=== PATIENT | female | born 1990 | race African-American/Black ===

== ENCOUNTER 2022-02-23 23:04 | Emergency (ER) | payer BC, SELFPAY ==
[2022-02-24] MEDS ORDERED: Ondansetron PF 4 MG/2 ML Vial ONE (00:56)
[2022-02-24 01:08] LABS: Hemoglobin 13.6 g/dL (12.0-16.0); Mean Corpuscular HGB CONC 32.5 g/dL (32.0-36.0); Mean Corpuscular Hemoglobin 28.3 pg (27.0-31.0); Mean Corpuscular Volume 87.2 fL (78.0-98.0); Mean Platelet Volume 11.6 fL (7.4-10.4); Platelet Count 219 thou/uL (130-400); RBC Distribution Width 15.3 % (11.5-14.5); Red Blood Cell (RBC) Count 4.81 mill/uL (4.20-5.40)
[2022-02-24 01:10] LABS: ALT (SGPT) 37 U/L (8-55); AST (SGOT) 22 U/L (5-34); Albumin 4.6 g/dL (3.5-5.0); Alkaline Phosphatase 89 U/L (40-110); Anion Gap 19 mmol/L (10-20); BUN (Urea Nitrogen) 18 mg/dL (7.0-18.7); Bilirubin, Total 0.6 mg/dL (0.2-1.2); Calc. Creatinine Clearance 0 mL/min (70-130); Calcium 10.1 mg/dL (7.8-10.44); Carbon Dioxide 19 mmol/L (22-29); Chloride 107 mmol/L (98-107); Globulin 3.6 g/dL (2.4-3.5); Glucose 150 mg/dL (70-105); Lipase 7 U/L (8-78); Potassium 3.6 mmol/L (3.5-5.1); Protein, Total 8.2 g/dL (6.0-8.3); Sodium 141 mmol/L (136-145)
[2022-02-24 01:30] LABS: Band 8 % (5-11); Lymphocytes 7 % (21-51); MDiff Complete? YES; Monocytes 2 % (0-10); Neutrophil 82 % (42-75); White Blood Cell (WBC) Count 24.7 thou/uL (4.8-10.8)
[2022-02-24] MEDS ORDERED: Promethazine HCl 25 MG in Sodium Chloride 0.9% 100 ML IVPB SCH (03:00)
== END 2022-02-24 03:51 | disposition home or self-care (01) ==
LOC: ERS 23:04
DX: A08.4 Viral intestinal infection, unspecified (principal)
CPT/HCPCS: 36415; 80053; 83690; 85025; 96374; 96375; J2405; J2550; J3490

== ENCOUNTER 2022-02-25 13:24 | Emergency (ER) | payer BC ==
[~2022-02-25 13:24] MED LIST: Iopamidol-370 76% 500 ML 1 ML ONE
[2022-02-25 15:01] LABS: Hemoglobin 14.5 g/dL (12.0-16.0); Mean Corpuscular HGB CONC 32.7 g/dL (32.0-36.0); Mean Corpuscular Hemoglobin 28.1 pg (27.0-31.0); Mean Corpuscular Volume 86.1 fL (78.0-98.0); Platelet Count 242 thou/uL (130-400); RBC Distribution Width 16.1 % (11.5-14.5); Red Blood Cell (RBC) Count 5.16 mill/uL (4.20-5.40)
[2022-02-25 15:16] LABS: Anisocytosis SLIGHT = 6-15 cells (100X) (0-5/hpf); Band 3 % (5-11); Large Platelets SLIGHT; Lymphocytes 6 % (21-51); MDiff Complete? YES; Monocytes 9 % (0-10); Neutrophil 82 % (42-75); Platelet Morphology Comment Appears Adequate; White Blood Cell (WBC) Count 18.6 thou/uL (4.8-10.8)
[2022-02-25 15:22] LABS: ALT (SGPT) 40 U/L (8-55); AST (SGOT) 32 U/L (5-34); Albumin 4.9 g/dL (3.5-5.0); Alkaline Phosphatase 90 U/L (40-110); Anion Gap 17 mmol/L (10-20); BUN (Urea Nitrogen) 16 mg/dL (7.0-18.7); Bilirubin, Total 0.8 mg/dL (0.2-1.2); Calc. Creatinine Clearance 0 mL/min (70-130); Calcium 10.7 mg/dL (7.8-10.44); Carbon Dioxide 24 mmol/L (22-29); Chloride 103 mmol/L (98-107); Glucose 100 mg/dL (70-105); Lipase 8 U/L (8-78); Potassium 3.4 mmol/L (3.5-5.1); Protein, Total 8.9 g/dL (6.0-8.3); Sodium 141 mmol/L (136-145)
[2022-02-25 15:43] LABS: BHCG - Serum Negative (NEGATIVE); Pregs Control Background? CLEAR/WHITE (CLR/WHITE); Pregs Control Bar Appear? YES (CONTROL BAR)
[2022-02-25] MEDS ORDERED: Haloperidol Lactate 5 MG/ML VIAL ONE (17:09)
[2022-02-25] MEDS ORDERED: Lidocaine Viscous Sol 2% 15 ml UD Cup ONE (19:28)
[2022-02-25] MEDS ORDERED: Pantoprazole 40 MG VIAL ONE (19:28)
[2022-02-25] MEDS ORDERED: Mag-Al 1200 mg/1200 mg/30 ML UDCUP ONE (19:28)
[2022-02-25] MEDS ORDERED: Potassium Chloride 20 MEQ TAB ONE (19:42)
== END 2022-02-25 20:43 | disposition home or self-care (01) ==
LOC: ERS 13:24
DX: R11.2 Nausea with vomiting, unspecified (principal)
CPT/HCPCS: 36415; 74177; 80053; 83690; 84703; 85025; 96374; 96375; C9113; J1630; J2405; J2550; J3490; Q9967

== ENCOUNTER 2022-03-03 15:28 | Emergency (ER) | payer BC ==
[2022-03-03 17:26] LABS: #Lymphocytes 0.6 thou/uL (1.20-3.40); #Monocytes 0.4 thou/uL (0.11-0.59); #Neutrophils 15.9 thou/uL (1.40-6.50); %Basophils 0.1 % (0.0-1.0); %Eosinophils 0.1 % (0.0-10.0); %Lymphocytes 3.6 % (21.0-51.0); %Monocytes 2.4 % (0.0-10.0); %Neutrophils 93.8 % (42.0-75.0); Hemoglobin 15.3 g/dL (12.0-16.0); Mean Corpuscular HGB CONC 31.3 g/dL (32.0-36.0); Mean Corpuscular Hemoglobin 26.9 pg (27.0-31.0); Mean Platelet Volume 11.3 fL (7.4-10.4); Platelet Count 211 thou/uL (130-400); RBC Distribution Width 15.2 % (11.5-14.5); Red Blood Cell (RBC) Count 5.68 mill/uL (4.20-5.40)
[2022-03-03] MEDS ORDERED: Ondansetron ODT 4 MG TAB ONE (17:27)
[2022-03-03] MEDS ORDERED: Haloperidol Lactate 5 MG/ML VIAL ONE (17:36)
[2022-03-03] MEDS ORDERED: Midazolam HCl 2 mg/2 ml Vial ONE (17:36)
[2022-03-03 18:01] LABS: ALT (SGPT) 101 U/L (8-55); AST (SGOT) 27 U/L (5-34); Albumin 4.5 g/dL (3.5-5.0); Alkaline Phosphatase 90 U/L (40-110); Anion Gap 19 mmol/L (10-20); BUN (Urea Nitrogen) 9 mg/dL (7.0-18.7); Bilirubin, Total 0.7 mg/dL (0.2-1.2); Calc. Creatinine Clearance 0 mL/min (70-130); Calcium 9.9 mg/dL (7.8-10.44); Carbon Dioxide 19 mmol/L (22-29); Chloride 104 mmol/L (98-107); Estimated GFR 91; Globulin 3.6 g/dL (2.4-3.5); Glucose 152 mg/dL (70-105); Lipase 23 U/L (8-78); Protein, Total 8.1 g/dL (6.0-8.3); Sodium 139 mmol/L (136-145)
[2022-03-03 18:53] LABS: Bilirubin Negative (Negative); Blood, Urine Negative (Negative); Clarity Clear (Clear); Glucose, Urine (Dipstick) 300 mg/dL (Negative); Ketone, Urine 40 mg/dL (Negative); Leukocyte Negative Leu/uL (Negative); Nitrite Negative (Negative); Protein, Urine (Dipstick) 10 mg/dL (Neg-Trace); Specific Gravity, Urine 1.017 (1.002-1.036); Urobilinogen Normal mg/dL (Less than 2)
[2022-03-03 18:57] LABS: Pregnancy Test - Urine (BHCG) Negative (Negative); Pregu Control Background? CLEAR/WHITE (CLR/WHITE); Pregu Control Bar Appear? YES (CONTROL BAR); Specific Gravity 1.017 (1.002-1.036)
[2022-03-03] MEDS ORDERED: Ketorolac Tromethamine 30 MG/ML VIAL ONE (19:30)
[2022-03-03] MEDS ORDERED: Potassium Chloride 20 MEQ TAB ONE (19:30)
== END 2022-03-03 20:39 | disposition home or self-care (01) ==
LOC: ERS 15:28
DX: R11.2 Nausea with vomiting, unspecified (principal); E87.6 Hypokalemia; N83.202 Unspecified ovarian cyst, left side
CPT/HCPCS: 36415; 74177; 80053; 81003; 81025; 83690; 85025; 96361; 96374; 96375; J1630; J1885; J2250; Q0162; Q9967

== ENCOUNTER 2022-05-07 07:18 | Observation (INO) | payer BC, SELFPAY ==
[2022-05-07] MEDS ORDERED: Dicyclomine 20 MG/2 ML VIAL ONE (07:43)
[2022-05-07] MEDS ORDERED: Ondansetron PF 4 MG/2 ML Vial ONE (07:43)
[2022-05-07 08:11] LABS: Hemoglobin 12.8 g/dL (12.0-16.0); Mean Corpuscular HGB CONC 32.6 g/dL (32.0-36.0); Mean Corpuscular Hemoglobin 28.2 pg (27.0-31.0); Mean Corpuscular Volume 86.7 fL (78.0-98.0); Mean Platelet Volume 11.1 fL (7.4-10.4); Platelet Count 252 thou/uL (130-400); RBC Distribution Width 14.6 % (11.5-14.5); Red Blood Cell (RBC) Count 4.52 mill/uL (4.20-5.40); White Blood Cell (WBC) Count 22.2 thou/uL (4.8-10.8)
[2022-05-07 08:17] LABS: BHCG - Serum Negative (NEGATIVE); Pregs Control Background? CLEAR/WHITE (CLR/WHITE); Pregs Control Bar Appear? YES (CONTROL BAR)
[2022-05-07 08:30] LABS: ALT (SGPT) 42 U/L (8-55); AST (SGOT) 82 U/L (5-34); Albumin 4.7 g/dL (3.5-5.0); Alkaline Phosphatase 84 U/L (40-110); Anion Gap 19 mmol/L (10-20); BUN (Urea Nitrogen) 18 mg/dL (7.0-18.7); Bilirubin, Total 0.8 mg/dL (0.2-1.2); Calc. Creatinine Clearance 0 mL/min (70-130); Calcium 10.2 mg/dL (7.8-10.44); Carbon Dioxide 20 mmol/L (22-29); Chloride 105 mmol/L (98-107); Estimated GFR 76; Globulin 3.7 g/dL (2.4-3.5); Glucose 128 mg/dL (70-105); Lipase 5 U/L (8-78); Potassium 3.1 mmol/L (3.5-5.1); Protein, Total 8.4 g/dL (6.0-8.3); Sodium 141 mmol/L (136-145)
[2022-05-07 08:56] LABS: Band 4 % (5-11); Lymphocytes 11 % (21-51); MDiff Complete? YES; Monocytes 2 % (0-10); Neutrophil 83 % (42-75); RBC Morphology Normal
[2022-05-07] MEDS ORDERED: Metoclopramide HCl 10 MG/2 ML VIAL ONE (09:06)
[2022-05-07] MEDS ORDERED: Promethazine HCl 12.5 MG in Sodium Chloride 0.9% 50 ML IVPB SCH (11:00)
[2022-05-07 11:03] LABS: Bacteria/HPF None Seen HPF (None Seen); Bilirubin Negative (Negative); Blood, Urine 3+ (Negative); Clarity Clear (Clear); Glucose, Urine (Dipstick) Normal (Negative); Ketone, Urine 60 mg/dL (Negative); Leukocyte Negative Leu/uL (Negative); Nitrite Negative (Negative); Protein, Urine (Dipstick) 10 mg/dL (Neg-Trace); RBC/HPF 0-3 HPF (0-3); Specific Gravity, Urine 1.041 (1.002-1.036); Squamous Epithelial 0-3 HPF (0-3); Urobilinogen Normal mg/dL (Less than 2); WBC/HPF 0-3 HPF (0-3)
[2022-05-07] MEDS ORDERED: hydrALAZINE 20 MG/ML VIAL ONE (11:42)
[2022-05-07] MEDS ORDERED: Prochlorperazine Maleate 5 MG TAB ONE (13:35)
[2022-05-07] MEDS ORDERED: Zolpidem Tartrate 5 MG TAB PO PRN (13:43)
[2022-05-07] MEDS ORDERED: HYDROcodone/Acetaminophen 7.5/325 mg Tablet PO PRN (13:43)
[2022-05-07] MEDS ORDERED: Iopamidol-370 76% 500 ML 1 ML ONE (15:11)
[2022-05-07 20:08] VITALS: BMI 26.5
[2022-05-07] MEDS: Sodium Chloride 0.9% 1,000 ML IV SCH (21:36)
[2022-05-07] MEDS: Ondansetron PF 4 MG/2 ML Vial IVP PRN (21:40)
[2022-05-07] MEDS: Famotidine/PF 20 mg/2ml Vial SLOW IVP SCH (21:41)
[2022-05-08] MEDS: hydrALAZINE 20 MG/ML VIAL SLOW IVP PRN ×2 (01:37→09:55)
[2022-05-08] MEDS: Ondansetron PF 4 MG/2 ML Vial IVP PRN ×2 (04:24→10:29)
[2022-05-08 08:17] LABS: #Lymphocytes 1.5 thou/uL (1.20-3.40); #Monocytes 1.8 thou/uL (0.11-0.59); #Neutrophils 23.1 thou/uL (1.40-6.50); %Basophils 0.1 % (0.0-1.0); %Eosinophils 0.1 % (0.0-10.0); %Lymphocytes 5.6 % (21.0-51.0); %Monocytes 6.7 % (0.0-10.0); %Neutrophils 87.5 % (42.0-75.0); Hemoglobin 13.3 g/dL (12.0-16.0); Mean Corpuscular HGB CONC 32.6 g/dL (32.0-36.0); Mean Corpuscular Hemoglobin 28.5 pg (27.0-31.0); Mean Corpuscular Volume 87.4 fL (78.0-98.0); Mean Platelet Volume 11.1 fL (7.4-10.4); Platelet Count 235 thou/uL (130-400); RBC Distribution Width 14.7 % (11.5-14.5); Red Blood Cell (RBC) Count 4.68 mill/uL (4.20-5.40); White Blood Cell (WBC) Count 26.4 thou/uL (4.8-10.8)
[2022-05-08 08:36] LABS: Albumin 4.3 g/dL (3.5-5.0)
[2022-05-08 08:37] LABS: Chloride 106 mmol/L (98-107); Potassium 3.5 mmol/L (3.5-5.1); Sodium 142 mmol/L (136-145)
[2022-05-08 08:38] LABS: Calcium 9.6 mg/dL (7.8-10.44); Glucose 93 mg/dL (70-105)
[2022-05-08 08:39] LABS: Globulin 3.4 g/dL (2.4-3.5); Protein, Total 7.7 g/dL (6.0-8.3)
[2022-05-08 08:40] LABS: Anion Gap 21 mmol/L (10-20); Bilirubin, Total 0.7 mg/dL (0.2-1.2); Carbon Dioxide 19 mmol/L (22-29)
[2022-05-08 08:41] LABS: Alkaline Phosphatase 76 U/L (40-110)
[2022-05-08 08:42] LABS: BUN (Urea Nitrogen) 9 mg/dL (7.0-18.7); Calc. Creatinine Clearance 121 mL/min (70-130); Estimated GFR 98
[2022-05-08 08:44] LABS: ALT (SGPT) 57 U/L (8-55); AST (SGOT) 121 U/L (5-34)
[2022-05-08] MEDS ORDERED: Enoxaparin Sodium 40 MG/0.4 ML SYRINGE SC SCH (09:00)
[2022-05-08] MEDS: Sodium Chloride 0.9% 1,000 ML IV SCH ×2 (09:52→14:11)
[2022-05-08] MEDS: Famotidine/PF 20 mg/2ml Vial SLOW IVP SCH (09:53)
[2022-05-08] MEDS: Enoxaparin Sodium 30 MG/0.3 ML SYRINGE SC SCH (09:57)
[2022-05-08] MEDS ORDERED: Prochlorperazine 10 MG/2 ML VIAL IM PRN (13:14)
[2022-05-08] MEDS ORDERED: Piperacillin/Tazobactam 3.375 GM in Sodium Chloride 0.9% 100 ML IVPB SCH (13:15)
[2022-05-08] MEDS ORDERED: Amlodipine 10 MG TAB PO SCH (13:30)
[2022-05-08 14:52] LABS: Amphetamine Not Detected (NotDetected); Barbiturates Screen Not Detected (NotDetected); Benzodiazepine Screen Not Detected (NotDetected); Cocaine Metabolite Screen Not Detected (NotDetected); Methadone Not Detected (NotDetected); Methamphetamine Not Detected (NotDetected); Opiate Screen Not Detected (NotDetected); Oxycodone Screen Not Detected (NotDetected); Phencyclidine (PCP) Not Detected (NotDetected); THC/Cannabinoid Screen Detected (NotDetected); Tricyclic Screen Not Detected (NotDetected)
[2022-05-08] MEDS: Promethazine HCl 25 MG in Sodium Chloride 0.9% 50 ML IVPB SCH ×3 (14:58→21:12)
[2022-05-08] MEDS ORDERED: Sodium Chloride 0.9% 1,000 ML IV SCH (15:30)
[2022-05-08] MEDS: Metoprolol Tartrate 25 MG TAB PO SCH (21:11)
[2022-05-08] MEDS: Pantoprazole 40 MG VIAL IVP SCH (21:11)
[2022-05-08 22:24] LABS: Complement-C4 39.3 mg/dL (15-57)
[2022-05-09] MEDS: Sodium Chloride 0.9% 1,000 ML IV SCH ×4 (01:17→22:00)
[2022-05-09] MEDS: Promethazine HCl 25 MG in Sodium Chloride 0.9% 50 ML IVPB SCH ×6 (01:17→22:04)
[2022-05-09] MEDS ORDERED: Ondansetron PF 4 MG/2 ML Vial IVP SCH (04:30)
[2022-05-09] MEDS: hydrALAZINE 20 MG/ML VIAL SLOW IVP PRN ×3 (04:41→22:04)
[2022-05-09 05:32] LABS: #Basophils 0.1 thou/uL (0.0-0.2); #Lymphocytes 1.5 thou/uL (1.20-3.40); #Monocytes 1.8 thou/uL (0.11-0.59); #Neutrophils 19.1 thou/uL (1.40-6.50); %Basophils 0.3 % (0.0-1.0); %Eosinophils 0.1 % (0.0-10.0); %Lymphocytes 6.5 % (21.0-51.0); %Monocytes 8.1 % (0.0-10.0); Hemoglobin 14.1 g/dL (12.0-16.0); Mean Corpuscular HGB CONC 34.1 g/dL (32.0-36.0); Mean Corpuscular Hemoglobin 29.8 pg (27.0-31.0); Mean Corpuscular Volume 87.4 fL (78.0-98.0); Mean Platelet Volume 11.1 fL (7.4-10.4); Platelet Count 250 thou/uL (130-400); RBC Distribution Width 14.6 % (11.5-14.5); Red Blood Cell (RBC) Count 4.75 mill/uL (4.20-5.40); White Blood Cell (WBC) Count 22.5 thou/uL (4.8-10.8)
[2022-05-09 05:56] LABS: ALT (SGPT) 69 U/L (8-55); AST (SGOT) 80 U/L (5-34); Albumin 4.3 g/dL (3.5-5.0); Alkaline Phosphatase 79 U/L (40-110); Anion Gap 19 mmol/L (10-20); BUN (Urea Nitrogen) 8 mg/dL (7.0-18.7); Bilirubin, Total 1.1 mg/dL (0.2-1.2); Calc. Creatinine Clearance 122 mL/min (70-130); Calcium 9.6 mg/dL (7.8-10.44); Carbon Dioxide 22 mmol/L (22-29); Chloride 105 mmol/L (98-107); Estimated GFR 104; Globulin 3.3 g/dL (2.4-3.5); Glucose 95 mg/dL (70-105); Magnesium 2.2 mg/dL (1.6-2.6); Protein, Total 7.6 g/dL (6.0-8.3); Sodium 143 mmol/L (136-145)
[2022-05-09 06:05] LABS: BHCG - Serum Negative (NEGATIVE); Pregs Control Background? CLEAR/WHITE (CLR/WHITE); Pregs Control Bar Appear? YES (CONTROL BAR)
[2022-05-09 06:12] LABS: Ferritin 20.18 ng/mL (10-291)
[2022-05-09 06:24] LABS: HBCM Index 0.06 S/CO (0-0.79); HBSAg Index 0.25 S/CO (0-0.99); Hep A IgM AB Non-Reactive (NonReactive); Hep A IgM S/CO 0.15 S/CO (0-0.79); Hep B Surf Ag NonReactive S/CO (NonReactive); Hep C IgG Ab NonReactive (NonReactive); Hep C Index 0.16 S/CO (0-0.79); Hepatitis B Core IgM Abs NonReactive (NonReactive)
[2022-05-09] MEDS ORDERED: Electrolyte Replacement Protocol 1 EACH FS SCH (06:30)
[2022-05-09] MEDS ORDERED: Labetalol HCl 100 MG/20 ML VIAL SLOW IVP SCH (06:30)
[2022-05-09] MEDS ORDERED: PROPOFOL 40 ML ONE (07:49)
[2022-05-09] MEDS ORDERED: Ketamine 50 MG/ML (10ML VIAL) ONE (07:49)
[2022-05-09] MEDS ORDERED: PROPOFOL 200 MG/20 ML VIAL ONE (08:35)
[2022-05-09] MEDS ORDERED: Metoprolol Tartrate 50 MG TAB PO SCH (09:15)
[2022-05-09] MEDS ORDERED: Promethazine HCl 25 MG/ML VIAL IVPB PRN (09:25)
[2022-05-09] MEDS ORDERED: Ondansetron HCl/PF 4 MG/2 ML Vial IVP PRN (09:25)
[2022-05-09] MEDS ORDERED: Promethazine HCl 25 MG/ML VIAL IM PRN (09:25)
[2022-05-09] MEDS ORDERED: Electrolyte Replacement Protocol FS PRN (10:00)
[2022-05-09] MEDS: Enoxaparin Sodium 30 MG/0.3 ML SYRINGE SC SCH (10:43)
[2022-05-09] MEDS: Potassium Chloride 20 MEQ in Premix Bag 1 BAG IVPB SCH ×2 (10:44→14:16)
[2022-05-09] MEDS: Pantoprazole 40 MG VIAL IVP SCH ×2 (10:45→20:51)
[2022-05-09] MEDS: Hydrochlorothiazide 25 MG TAB PO SCH (10:45)
[2022-05-09] MEDS: Metoprolol Tartrate 25 MG TAB PO SCH (11:36)
[2022-05-09] MEDS ORDERED: Potassium Chloride 20 MEQ in Premix Bag 1 BAG IVPB SCH (14:30)
[2022-05-09 17:09] LABS: ANA Symphony (Qualitative) Negative (Negative); ANA Symphony (Quantitative) 0.4 Ratio (< 0.7 Negative); EliA Vaculitis New Method **** NEW METHOD ****; Mitochondrial Ab 1.1 U/mL (<4 Negative); dsDNA IgG Antibody 0.8 IU/mL (<10 Negative)
[2022-05-09] MEDS: Metoprolol Tartrate 50 MG TAB PO SCH (20:51)
[2022-05-10] MEDS: Promethazine HCl 25 MG in Sodium Chloride 0.9% 50 ML IVPB SCH ×4 (01:15→12:59)
[2022-05-10] MEDS: Sodium Chloride 0.9% 1,000 ML IV SCH ×3 (01:15→09:01)
[2022-05-10 01:19] LABS: Potassium 3.2 mmol/L (3.5-5.1)
[2022-05-10] MEDS: Potassium Chloride 20 MEQ TAB PO SCH ×2 (02:43→03:07)
[2022-05-10] MEDS: Potassium Chloride 20 MEQ in Premix Bag 1 BAG IVPB SCH ×4 (03:02→14:34)
[2022-05-10] MEDS: hydrALAZINE 20 MG/ML VIAL SLOW IVP PRN (05:16)
[2022-05-10] MEDS ORDERED: Labetalol HCl 100 MG/20 ML VIAL SLOW IVP PRN (06:48)
[2022-05-10 07:35] LABS: #Eosinphils 0.1 thou/uL (0.0-0.7); #Lymphocytes 2.7 thou/uL (1.20-3.40); #Monocytes 2.5 thou/uL (0.11-0.59); #Neutrophils 15.3 thou/uL (1.40-6.50); %Basophils 0.2 % (0.0-1.0); %Eosinophils 0.4 % (0.0-10.0); %Lymphocytes 12.8 % (21.0-51.0); %Monocytes 12.2 % (0.0-10.0); %Neutrophils 74.4 % (42.0-75.0); Hemoglobin 14.4 g/dL (12.0-16.0); Mean Corpuscular HGB CONC 31.7 g/dL (32.0-36.0); Mean Corpuscular Hemoglobin 27.9 pg (27.0-31.0); Mean Corpuscular Volume 88.1 fL (78.0-98.0); Mean Platelet Volume 11.4 fL (7.4-10.4); Platelet Count 260 thou/uL (130-400); RBC Distribution Width 14.6 % (11.5-14.5); Red Blood Cell (RBC) Count 5.17 mill/uL (4.20-5.40); White Blood Cell (WBC) Count 20.6 thou/uL (4.8-10.8)
[2022-05-10] MEDS: Enoxaparin Sodium 30 MG/0.3 ML SYRINGE SC SCH (08:53)
[2022-05-10] MEDS: Metoprolol Tartrate 50 MG TAB PO SCH (08:53)
[2022-05-10] MEDS: Hydrochlorothiazide 25 MG TAB PO SCH (08:53)
[2022-05-10] MEDS: Pantoprazole 40 MG VIAL IVP SCH (08:53)
[2022-05-10 12:49] LABS: Potassium 3.5 mmol/L (3.5-5.1)
[2022-05-10 12:55] LABS: ALT (SGPT) 97 U/L (8-55); AST (SGOT) 85 U/L (5-34); Albumin 3.8 g/dL (3.5-5.0); Alkaline Phosphatase 76 U/L (40-110); Bilirubin, Direct 0.6 mg/dL (0.1-0.3); Bilirubin, Total 1.6 mg/dL (0.2-1.2); Protein, Total 6.9 g/dL (6.0-8.3)
[2022-05-10] MEDS ORDERED: Potassium Chloride 20 MEQ TAB PO SCH (14:45)
[2022-05-10] MEDS ORDERED: Multivitamins, Adult 10 ML, Folic Acid 1 MG, Thiamine HCl 100 MG in Dextrose 5 %-0.45 %... IV SCH (15:15)
[2022-05-10 16:09] VITALS: BP 150/109; TEMP 98.4
[2022-05-13 16:13] LABS: Smooth Muscle Total ABS 14 Units (0-19)
== END 2022-05-10 19:01 | disposition home or self-care (01) ==
LOC: ERS 07:18 → ERHOLD 12:35 → 2SW 19:58
PROVIDERS: ADMIT Family Medicine; ATTEND Family Medicine
PROC: 0DJ08ZZ Inspection of Upper Intestinal Tract, Via Natural or Artificial Opening Endoscopic (ICD-10-PCS; principal; 2022-05-09)
PROC: 0DBM8ZX Excision of Descending Colon, Via Natural or Artificial Opening Endoscopic, Diagnostic (ICD-10-PCS; 2022-05-09)
PROC: 0DBP8ZX Excision of Rectum, Via Natural or Artificial Opening Endoscopic, Diagnostic (ICD-10-PCS; 2022-05-09)
DX: D3A.8 Other benign neuroendocrine tumors (principal); K51.40 Inflammatory polyps of colon without complications; R11.2 Nausea with vomiting, unspecified; E05.20 Thyrotoxicosis with toxic multinodular goiter without thyrotoxic crisis or storm; R79.89 Other specified abnormal findings of blood chemistry; D72.829 Elevated white blood cell count, unspecified; E87.6 Hypokalemia; I10 Essential (primary) hypertension; K42.9 Umbilical hernia without obstruction or gangrene; N83.202 Unspecified ovarian cyst, left side; R19.7 Diarrhea, unspecified; Z20.822 Contact with and (suspected) exposure to COVID-19
CPT/HCPCS: 36415; 74177; 76536; 80053; 80074; 80076; 80306; 81003; 81015; 82105; 82390; 82728; 83516; 83605; 83615; 83690; 83735; 84132; 84439; 84443; 84703; 85025; 85060; 85652; 86015; 86038; 86140; 86160; 86161; 86225; 86304; 86709; 87040; 87086; 87340; 88305; 88360; 96361; 96365; 96367; 96372; 96375; 96376; C9113; G0378; J0360; J1650; J2405; J2543; J2550; J2704; J2765; J3480; J3490; J7050; Q0164; Q9967; S0028; U0003; U0005